=== PATIENT | female | born 1970 | race Caucasian/White ===

== ENCOUNTER 2017-06-03 17:33 | Emergency (ER) | payer MEDICARE, BC ==
[2017-06-03] MEDS ORDERED: Sodium Chloride 0.9% 10 ML Syringe FLUSH PRN (17:48)
[2017-06-03] MEDS ORDERED: Aspirin 81 MG Tab.Chew PO ONE (17:48)
[2017-06-03] MEDS: Nitroglycerin 0.4 MG Tab.SL SL PRN ×3 (17:55→18:06)
[2017-06-03] MEDS ORDERED: Morphine 2 MG/ML Syringe IVPUSH ONE (17:58)
[2017-06-03] MEDS ORDERED: Nitroglycerin/D5W 25 MG/250 ML BOTTLE IV SCH (18:00)
--- NOTE | 2017-06-03 18:30 | EDM.PDOC ---
ED HPI GENERAL MEDICAL PROBLEM - General Chief Complaint: Cardiovascular Problem Stated Complaint: CHEST PAIN Time Seen by Provider: 06/03/17 17:47 Source of Information: Reports: Patient History Limitations: Reports: No Limitations - History of Present Illness INITIAL COMMENTS - FREE TEXT/NARRATIVE: History of present illness: []Patient has a history of acute CA in March 2016 and was stented in [place]. She presents today with 5 day history of continuous left-sided chest pain that feels similar to her previous CA. Patient also has a history of fibromyalgia and states that she thought it might also be her fibromyalgia. Review of systems: As per history of present illness and below otherwise all systems reviewed and negative. Past medical history: As per history of present illness and as reviewed below otherwise noncontributory. Surgical history: As per history of present illness and as reviewed below otherwise noncontributory. Social history: No reported history of drug or alcohol abuse. Family history: As per history of present illness and as reviewed below otherwise noncontributory. Physical exam: General: Well developed, well nourished in NAD HEENT: Atraumatic, normocephalic, pupils reactive, negative for conjunctival pallor or scleral icterus, mucous membranes moist, throat clear, neck supple, nontender, trachea midline. Lungs: Clear to auscultation, breath sounds equal bilaterally, chest nontender. Heart: S1S2, regular, negative for clicks, rubs, or JVD. Abdomen: Soft, nondistended, nontender. Negative for masses or hepatosplenomegaly. Negative for costovertebral tenderness. Pelvis: Stable nontender. Genitourinary: Deferred. Rectal: Deferred. Extremities: Atraumatic, negative for cords or calf pain. Neurovascular unremarkable. Neuro: Awake, alert, oriented. Cranial nerves II through XII unremarkable. Cerebellum unremarkable. Motor and sensory unremarkable throughout. Exam nonfocal. Diagnostics: [] Therapeutics: [] Impression: [] Plan: [] Definitive disposition and diagnosis as appropriate pending reevaluation and review of above. Left Arm Pain Score (Numeric/FACES): 6 - Related Data Allergies Allergy/AdvReac Type Severity Reaction Status Date / Time codeine Allergy Facial Verified 02/20/17 10:04 Swelling ibuprofen Allergy Facial Unverified 02/20/17 10:05 Swelling ketorolac tromethamine Allergy Facial Verified 02/20/17 10:04 [From Toradol] Swelling procaine HCl [From Novocain] Allergy Other Verified 10/01/16 12:15 Home Meds: Home Meds Aspirin 10/01/16 [History] Clopidogrel [Plavix] 10/01/16 [History] Past Medical History HEENT History: Reports: None Cardiovascular History: Reports: [place], Stents Gastrointestinal History: Reports: Other (See Below) Other Gastrointestinal History: Ulcerative Colitis Other OB/BYN History: c section x 2 Musculoskeletal History: Reports: Fibromyalgia, Osteoarthritis Neurological History: Reports: Migraines Psychiatric History: Reports: Anxiety, Panic Attack Hematologic History: Reports: Anticoagulation Therapy Oncologic (Cancer) History: Reports: Cervix, Ovarian - Past Surgical History Female Surgical History: Reports: Hysterectomy Social & Family History - Family History Family Medical History: Noncontributory - Tobacco Use Smoking Status *Q: Current Every Day Smoker Years of Tobacco use: 30 Packs/Tins Daily: 1 - Caffeine Use Caffeine Use: Reports: Other - Recreational Drug Use Recreational Drug Use: No ED ROS GENERAL - Review of Systems Review Of Systems: See Below ED EXAM, GENERAL - Physical Exam Exam: See Below (CHPI) Course - Vital Signs Last Recorded V/S: Last Vital Signs Temp 35.8 C 06/03/17 17:46 Pulse 64 06/03/17 19:37 Resp 16 06/03/17 19:37 BP 127/90 06/03/17 19:37 Pulse Ox 98 06/03/17 19:37 - Orders/Labs/Meds Orders: Active Orders 24 hr Category Date Time Status EKG 12 Lead [EKG Documentation Completion] [RC] URGENT Care 06/03/17 17:36 Active Oxygen Therapy, ED [RC] ASDIRECTED Care 06/03/17 17:47 Active Chest 1V Frontal [CR] Stat Exams 06/03/17 17:48 Taken Saline Lock Insert [OM.PC] Stat Oth 06/03/17 17:47 Ordered Labs: Laboratory Tests 06/03/17 06/03/17 06/03/17 Range/Units 17:40 17:40 17:40 WBC 12.92 H (4.0-11.0) K/uL RBC 5.09 (4.30-5.90) M/uL Hgb 14.8 (12.0-16.0) g/dL Hct 44.4 (36.0-46.0) % MCV 87.2 (80.0-98.0) fL MCH 29.1 (27.0-32.0) pg MCHC 33.3 (31.0-37.0) g/dL RDW Std Deviation 43.8 (28.0-62.0) fl RDW Coeff of Ethel 14 (11.0-15.0) % Plt Count 287 (150-400) K/uL MPV 11.30 (7.40-12.00) fL Neut % (Auto) 54.8 (48.0-80.0) % Lymph % (Auto) 37.6 (16.0-40.0) % [place] % (Auto) 5.3 (0.0-15.0) % Eos % (Auto) 1.9 (0.0-7.0) % Baso % (Auto) 0.4 (0.0-1.5) % Neut # (Auto) 7.1 H (1.4-5.7) K/uL Lymph # (Auto) 4.9 H (0.6-2.4) K/uL [place] # (Auto) 0.7 (0.0-0.8) K/uL Eos # (Auto) 0.2 (0.0-0.7) K/uL Baso # (Auto) 0.1 (0.0-0.1) K/uL Nucleated RBC % 0.0 /100WBC Nucleated RBCs # 0 K/uL INR (0.86-1.11) APTT (18.6-31.3) SEC Sodium 139 (136-146) mmol/L Potassium 3.1 L (3.5-5.1) mmol/L Chloride 104 (98-110) mmol/L Carbon Dioxide 23 (21-31) mmol/L BUN 5 L (6.0-23.0) mg/dL Creatinine 1.0 (0.6-1.5) mg/dL Est Cr Clr Drug Dosing 60.40 mL/min Estimated GFR (MDRD) 59.7 ml/min Glucose 120 H (60-110) mg/dL Calcium 8.8 (8.8-10.8) mg/dL Total Bilirubin 0.4 (0.1-1.5) mg/dL AST 17 (5-40) IU/L ALT 15 (8-54) IU/L Alkaline Phosphatase 97 (40-150) Troponin I < 0.10 (0.0-0.29) NG/ML Total Protein 7.8 (6.0-8.0) g/dL Albumin 4.4 (3.5-5.0) g/dL Globulin 3.4 (2.0-3.5) g/dL Albumin/Globulin Ratio 1.3 (1.3-2.8) 06/03/17 Range/Units 17:40 WBC (4.0-11.0) K/uL RBC (4.30-5.90) M/uL Hgb (12.0-16.0) g/dL Hct (36.0-46.0) % MCV (80.0-98.0) fL MCH (27.0-32.0) pg MCHC (31.0-37.0) g/dL RDW Std Deviation (28.0-62.0) fl RDW Coeff of Ethel (11.0-15.0) % Plt Count (150-400) K/uL MPV (7.40-12.00) fL Neut % (Auto) (48.0-80.0) % Lymph % (Auto) (16.0-40.0) % [place] % (Auto) (0.0-15.0) % Eos % (Auto) (0.0-7.0) % Baso % (Auto) (0.0-1.5) % Neut # (Auto) (1.4-5.7) K/uL Lymph # (Auto) (0.6-2.4) K/uL [place] # (Auto) (0.0-0.8) K/uL Eos # (Auto) (0.0-0.7) K/uL Baso # (Auto) (0.0-0.1) K/uL Nucleated RBC % /100WBC Nucleated RBCs # K/uL INR 0.96 (0.86-1.11) APTT 25.1 (18.6-31.3) SEC Sodium (136-146) mmol/L Potassium (3.5-5.1) mmol/L Chloride (98-110) mmol/L Carbon Dioxide (21-31) mmol/L BUN (6.0-23.0) mg/dL Creatinine (0.6-1.5) mg/dL Est Cr Clr Drug Dosing mL/min Estimated GFR (MDRD) ml/min Glucose (60-110) mg/dL Calcium (8.8-10.8) mg/dL Total Bilirubin (0.1-1.5) mg/dL AST (5-40) IU/L ALT (8-54) IU/L Alkaline Phosphatase (40-150) Troponin I (0.0-0.29) NG/ML Total Protein (6.0-8.0) g/dL Albumin (3.5-5.0) g/dL Globulin (2.0-3.5) g/dL Albumin/Globulin Ratio (1.3-2.8) Meds: Medications Discontinued Medications Generic Name Dose Route Start Last Admin Trade Name Freq PRN Reason Stop Dose Admin Aspirin 324 mg 06/03/17 17:48 06/03/17 17:54 Aspirin PO 06/03/17 17:49 324 mg ONETIME ONE Administration Nitroglycerin/Dextrose 25 mg in 250 mls @ 3 mls/hr 06/03/17 18:00 06/03/17 18 :32 Nitroglycerin 25 Mg/D5w 250 Ml IV 5 mcg/min TITRATE HAWA 3 mls/hr 5 MCG/MIN Administration Morphine Sulfate 4 mg 06/03/17 17:58 06/03/17 18:10 Morphine IVPUSH 06/03/17 17:59 4 mg ONETIME ONE Administration Nitroglycerin 0.4 mg 06/03/17 17:48 06/03/17 18:06 Nitrostat SL 06/03/17 17:59 0.4 mg Q5M PRN Administration Chest Pain Sodium Chloride 10 ml 06/03/17 17:48 Saline Flush FLUSH ASDIRECTED PRN Keep Vein Open Departure - Departure Time of Disposition: 19:40 Disposition: DC/Tfer to Acute Hospital 02 Reason for Transfer *Q: Other Condition: Good Clinical Impression: Acute coronary syndrome Referrals: César Arnold MD [Primary Care Provider] - Forms: ED Department Discharge - My Orders Last 24 Hours: My Active Orders 06/03/17 17:36 EKG 12 Lead [EKG Documentation Completion] [RC] URGENT 06/03/17 17:47 Oxygen Therapy, ED [RC] ASDIRECTED Saline Lock Insert [OM.PC] Stat 06/03/17 17:48 Chest 1V Frontal [CR] Stat - Assessment/Plan Last 24 Hours: My Active Orders 06/03/17 17:36 EKG 12 Lead [EKG Documentation Completion] [] URGENT 06/03/17 17:47 Oxygen Therapy, ED [RC] ASDIRECTED Saline Lock Insert [OM.PC] Stat 06/03/17 17:48 Chest 1V Frontal [CR] Stat
[2017-06-03 19:39] VITALS: BP 127/90
--- NOTE | 2017-06-04 13:04 | CR ---
EXAM DATE: 06/03/17 PATIENT'S AGE: 47 Patient: SHAUNA MANJARREZ Facility: [place], [place] Site . Site : [id number] Study: XRay Chest [id number] 6:34:24 PM Ordering Physician: Regulo Jones Final Report: Indication: Arm pain Technique: Chest 1 view Comparison: October 01, 2016. Findings/Impression: Cardiovascular and mediastinum: Heart size and vasculature are normal in caliber and appearance. Mediastinum is within normal limits. Lungs and pleural space: Calcified granuloma right lower lung field. Lungs are otherwise clear. No sign of pleural effusion. No pneumothorax. Bones and soft tissues: No significant findings. Dictated by Annette Bertrand MD @ Jun 03 2017 6:42PM (Electronic Signature) Report Signed by Proxy. [facility]
== END 2017-06-03 19:40 ==
LOC: MW.ED 17:33 → MW.MS 18:26 → UNDOADMOB 18:26 → MW.ED 19:40
DX: I24.9 Acute ischemic heart disease, unspecified (principal); I25.2 Old myocardial infarction; M19.90 Unspecified osteoarthritis, unspecified site; F17.210 Nicotine dependence, cigarettes, uncomplicated; Z88.5 Allergy status to narcotic agent; Z90.710 Acquired absence of both cervix and uterus; Z88.6 Allergy status to analgesic agent; Z79.82 Long term (current) use of aspirin
CPT/HCPCS: 71010; 80053; 84484; 85025; 85610; 85730; 93005; 96374; 99285; A9270; J2270

== ENCOUNTER 2019-11-04 23:25 | Observation (INO) | payer MEDICARE, OTHER ==
[2019-11-04] MEDS ORDERED: Sodium Chloride 0.9% 1,000 ML IV ONE (23:40)
[2019-11-04] MEDS ORDERED: Sodium Chloride 0.9% 2.5 ML Syringe FLUSH PRN (23:40)
[2019-11-04] MEDS ORDERED: Sodium Chloride 0.9% 10 ML Syringe FLUSH PRN (23:40)
--- NOTE | 2019-11-04 23:46 | EDM.PDOC ---
ED HPI GENERAL MEDICAL PROBLEM - General Chief Complaint: Chest Pain Stated Complaint: EMS ARRIVAL Time Seen by Provider: 11/04/19 23:30 - History of Present Illness INITIAL COMMENTS - FREE TEXT/NARRATIVE: HISTORY AND PHYSICAL: History of present illness: Patient is a 49-year-old female who presents via EMS with complaints of left- sided chest pain with some radiation to her shoulder that started at approximately 1030, just over an hour ago. The patient has a significant cardiac history for PTCA and stent in April 2016 and a visit to our ER in May 2017 where she was transferred for ACS. Her stents were placed in [facility] but she currently follows with a business process modeler at [facility]. The patient also has a history of fibromyalgia and tobacco use and follows at [facility] with Dr. Arnold for her basic medical care as well as neurologist in [place] for her fibromyalgia. The patient is on chronic gabapentin Flexeril and hydrocodone for her chronic pain syndrome and she smokes tobacco but denies any drug use. The patient says she was seen by her business process modeler 6 months ago and does check in every 6 months. 6 months ago she had an echocardiogram but she has not had any intervention such as a repeat heart cath or a chemical stress test since her original stents in 2015. The patient says that she did do more activity than usual today by going to the store and shopping and she does not have a very high exercise tolerance. She was more tired this evening but ate her normal meals and had no systemic complaints of fever shortness of breath runny nose sore throat abdominal pain vomiting or diarrhea. The patient was watching a movie and she suddenly had onset of left upper chest pain which radiated to her shoulder and her back but not to her jaw and there was some nausea but no diaphoresis or shortness of breath. She rated the pain as a 10/10. The patient was instructed by her business process modeler to take nitroglycerin sublingual every 5 minutes in succession and it did improve the chest pain but because it did not go away completely she called EMS. EMS gave her aspirin 324 mg and 1 nitro and the patient currently rates her pain as a 3/10 and says it is significantly improved. The patient tells me that she is only used her nitroglycerin one time in the last 3 years and that was about a year ago. She has no leg pain or swelling currently in the ED she has no nausea no shortness of breath and is just somewhat anxious. She does not take anything specifically for anxiety. She does admit to me that she drinks a lot of Pepsi and does not hydrate very much. Patient has no hypertension and no diabetes and she is currently taking aspirin daily as well as Plavix. She is not on a beta-chantal. Review of systems: As per history of present illness and below otherwise all systems reviewed and negative. Past medical history: As per history of present illness and as reviewed below otherwise noncontributory. Surgical history: As per history of present illness and as reviewed below otherwise noncontributory. Social history: No reported history of drug or alcohol abuse. Family history: As per history of present illness and as reviewed below otherwise noncontributory. Physical exam: General: Well-developed well-nourished female who is nontoxic and vital signs are noted by me. HEENT: Atraumatic, normocephalic, pupils reactive, negative for conjunctival pallor or scleral icterus, mucous membranes moist, throat clear, neck supple, nontender, trachea midline. Lungs: Clear to auscultation, breath sounds equal bilaterally, chest nontender. No wheezing stridor or work of breathing Heart: S1S2, regular rhythm and slightly tachycardic rate on my evaluation, negative for clicks, rubs, or JVD. Abdomen: Soft, nondistended, nontender. Negative for masses or hepatosplenomegaly. Negative for costovertebral tenderness. Pelvis: Stable nontender. Genitourinary: Deferred. Rectal: Deferred. Extremities: Atraumatic, negative for cords or calf pain. Neurovascular unremarkable. No pedal edema or leg asymmetry Neuro: Awake, alert, oriented. Cranial nerves II through XII unremarkable. Cerebellum unremarkable. Motor and sensory unremarkable throughout. Exam nonfocal. Diagnostics: EKG x2 chest x-ray CBC CMP troponin INR lactate magnesium level Therapeutics: IV O2 monitor IV fluids, EMS gave 324 mg of aspirin so I will not repeat, nitro sublingual, nitro sublingual potassium 0002: After 2 sublingual nitros the patient is not having any chest pain and half an inch of Nitropaste will be placed. The patient's heart rate has also normalized and is now in the 90s. We will continue with our present treatment 0010: Second EKG shows a heart rate of 86 and nonspecific flattening but no acute changes. 0020: Patient and at bedside are aware of all testing results and I will give her a dose of KCl and check her magnesium level. She is aware of my concerns about her lactate and her WBC count and in conversation with her she recently had a burst of steroid therapy for an ear problem and only finished them 2 days ago which may explain the leukocytosis. She is not febrile and has no cough no urinary complaints 0026: Discussed with our hospitalist Dr. Nobles and she accept the patient for observation admission. She is aware of all of the labs and my evaluation and work-up. Impression: Chest pain rule out ACS with history of coronary artery disease and stents Leukocytosis and elevated lactate recent steroid use Hypokalemia Definitive disposition and diagnosis as appropriate pending reevaluation and review of above. Treatments APPLIQUE CUTTER: Reports: IV/IO chest pain Pain Score (Numeric/FACES): 3 - Related Data Allergies Allergy/AdvReac Type Severity Reaction Status Date / Time codeine Allergy Facial Verified 11/05/19 00:25 Swelling ibuprofen Allergy Facial Verified 11/05/19 00:25 Swelling ketorolac tromethamine Allergy Facial Verified 11/05/19 00:25 [From Toradol] Swelling procaine HCl [From Novocain] Allergy Other Verified 11/05/19 00:25 Home Meds: Home Meds Aspirin 1 tab PO DAILY 10/01/16 [History] Clopidogrel [Plavix] 1 tab PO DAILY 10/01/16 [History] ALPRAZolam [Alprazolam] 1 tab PO DAILY 11/04/19 [History] Acetaminophen/HYDROcodone [[place] 325-10 MG] 1 tab PO ASDIRECTED PRN 11/04/19 [ History] Cyclobenzaprine [Flexeril] 10 mg PO DAILY 11/04/19 [History] Gabapentin [Neurontin] 1 cap PO DAILY 11/04/19 [History] Mesalamine [Lialda] 1 tab PO DAILY 11/04/19 [History] atorvaSTATin Calcium [Atorvastatin Calcium] 1 tab PO DAILY 11/04/19 [History] Past Medical History HEENT History: Reports: None Cardiovascular History: Reports: [place], Stents Gastrointestinal History: Reports: Other (See Below) Other Gastrointestinal History: Ulcerative Colitis Other SAW FEEDER History: c section x 2 Musculoskeletal History: Reports: Fibromyalgia, Osteoarthritis Neurological History: Reports: Migraines Psychiatric History: Reports: Anxiety, Panic Attack Hematologic History: Reports: Anticoagulation Therapy Oncologic (Cancer) History: Reports: Cervix, Ovarian - Past Surgical History Female Surgical History: Reports: Hysterectomy Social & Family History - Family History Family Medical History: Noncontributory - Caffeine Use Caffeine Use: Reports: Other ED ROS GENERAL - Review of Systems Review Of Systems: Comprehensive ROS is negative, except as noted in HPI. ED EXAM, GENERAL - Physical Exam Exam: See Below (See dictation) Course - Vital Signs Last Recorded V/S: Last Vital Signs Temp 36.4 C 11/04/19 23:25 Pulse 96 11/05/19 00:01 Resp 18 11/05/19 00:01 BP 109/67 11/05/19 00:01 Pulse Ox 98 11/05/19 00:01 - Orders/Labs/Meds Orders: Active Orders 24 hr Category Date Time Status Patient Status [ADT] Stat ADT 11/05/19 00:29 Ordered Cardiac Monitoring [RC] . DIRECTED Care 11/04/19 23:40 Active EKG Documentation Completion [RC] STAT Care 11/04/19 23:40 Active EKG Documentation Completion [RC] STAT Care 11/05/19 00:03 Active Oxygen Therapy, ED [RC] ASDIRECTED Care 11/04/19 23:40 Active Pulse Oximetry [RC] ASDIRECTED Care 11/04/19 23:40 Active Nitroglycerin [Nitrostat] Med 11/04/19 23:40 Active 0.4 mg SL Q5M PRN Sodium Chloride 0.9% [Normal Saline] 1,000 ml Med 11/04/19 23:40 Active IV STAT Sodium Chloride 0.9% [Saline Flush] Med 11/04/19 23:40 Active 10 ml FLUSH ASDIRECTED PRN Sodium Chloride 0.9% [Saline Flush] Med 11/04/19 23:40 Active 2.5 ml FLUSH ASDIRECTED PRN Saline Lock Insert [OM.PC] Stat Oth 11/04/19 23:40 Ordered Medication Orders Sodium Chloride (Normal Saline) 1,000 mls @ 999 mls/hr IV STAT ONE Stop: 11/05/19 00:40 Last Admin: 11/04/19 23:47 Dose: 999 mls/hr Nitroglycerin (Nitrostat) 0.4 mg SL Q5M PRN PRN Reason: Chest Pain Last Admin: 11/04/19 23:54 Dose: 0.4 mg Admin: 11/04/19 23:47 Dose: 0.4 mg Sodium Chloride (Saline Flush) 10 ml FLUSH ASDIRECTED PRN PRN Reason: Keep Vein Open Sodium Chloride (Saline Flush) 2.5 ml FLUSH ASDIRECTED PRN PRN Reason: Keep Vein Open Labs: Laboratory Tests 11/04/19 11/04/19 11/04/19 Range/Units 23:25 23:25 23:25 WBC 18.11 H (4.0-11.0) K/uL RBC 4.65 (4.30-5.90) M/uL Hgb 13.4 (12.0-16.0) g/dL Hct 39.8 (36.0-46.0) % MCV 85.6 (80.0-98.0) fL MCH 28.8 (27.0-32.0) pg MCHC 33.7 (31.0-37.0) g/dL RDW Std Deviation 45.8 (28.0-62.0) fl RDW Coeff of Ethel 15 (11.0-15.0) % Plt Count 377 (150-400) K/uL MPV 11.20 (7.40-12.00) fL Neut % (Auto) 52.4 (48.0-80.0) % Lymph % (Auto) 35.5 (16.0-40.0) % [place] % (Auto) 8.1 (0.0-15.0) % Eos % (Auto) 3.6 (0.0-7.0) % Baso % (Auto) 0.4 (0.0-1.5) % Neut # (Auto) 9.5 H (1.4-5.7) K/uL Lymph # (Auto) 6.4 H (0.6-2.4) K/uL [place] # (Auto) 1.5 H (0.0-0.8) K/uL Eos # (Auto) 0.7 (0.0-0.7) K/uL Baso # (Auto) 0.1 (0.0-0.1) K/uL Nucleated RBC % 0.0 /100WBC Nucleated RBCs # 0 K/uL INR 0.92 Lactate (0.20-2.00) mmol/L Sodium 140 (136-145) mmol/L Potassium 2.9 L (3.5-5.1) mmol/L Chloride 102 (98-107) mmol/L Carbon Dioxide 26.7 (21.0-32.0) mmol/L BUN 10 (7.0-18.0) mg/dL Creatinine 0.9 (0.6-1.0) mg/dL Est Cr Clr Drug Dosing 65.69 mL/min Estimated GFR (MDRD) > 60.0 ml/min Glucose 86 (74-106) mg/dL Calcium 8.2 L (8.5-10.1) mg/dL Magnesium (1.8-2.4) mg/dL Total Bilirubin 0.2 (0.2-1.0) mg/dL AST 10 L (15-37) IU/L ALT 18 (14-63) IU/L Alkaline Phosphatase 96 (46-116) U/L Troponin I < 0.050 (0.000-0.056) ng/mL Total Protein 6.7 (6.4-8.2) g/dL Albumin 3.3 L (3.4-5.0) g/dL Globulin 3.4 (2.6-4.0) g/dL Albumin/Globulin Ratio 1.0 (0.9-1.6) 11/04/19 11/04/19 Range/Units 23:25 23:25 WBC (4.0-11.0) K/uL RBC (4.30-5.90) M/uL Hgb (12.0-16.0) g/dL Hct (36.0-46.0) % MCV (80.0-98.0) fL MCH (27.0-32.0) pg MCHC (31.0-37.0) g/dL RDW Std Deviation (28.0-62.0) fl RDW Coeff of Ethel (11.0-15.0) % Plt Count (150-400) K/uL MPV (7.40-12.00) fL Neut % (Auto) (48.0-80.0) % Lymph % (Auto) (16.0-40.0) % [place] % (Auto) (0.0-15.0) % Eos % (Auto) (0.0-7.0) % Baso % (Auto) (0.0-1.5) % Neut # (Auto) (1.4-5.7) K/uL Lymph # (Auto) (0.6-2.4) K/uL [place] # (Auto) (0.0-0.8) K/uL Eos # (Auto) (0.0-0.7) K/uL Baso # (Auto) (0.0-0.1) K/uL Nucleated RBC % /100WBC Nucleated RBCs # K/uL INR Lactate 2.6 H* (0.20-2.00) mmol/L Sodium (136-145) mmol/L Potassium (3.5-5.1) mmol/L Chloride (98-107) mmol/L Carbon Dioxide (21.0-32.0) mmol/L BUN (7.0-18.0) mg/dL Creatinine (0.6-1.0) mg/dL Est Cr Clr Drug Dosing mL/min Estimated GFR (MDRD) ml/min Glucose (74-106) mg/dL Calcium (8.5-10.1) mg/dL Magnesium 2.0 (1.8-2.4) mg/dL Total Bilirubin (0.2-1.0) mg/dL AST (15-37) IU/L ALT (14-63) IU/L Alkaline Phosphatase (46-116) U/L Troponin I (0.000-0.056) ng/mL Total Protein (6.4-8.2) g/dL Albumin (3.4-5.0) g/dL Globulin (2.6-4.0) g/dL Albumin/Globulin Ratio (0.9-1.6) Meds: Medications Generic Name Dose Route Start Last Admin Trade Name Freq PRN Reason Stop Dose Admin Sodium Chloride 1,000 mls @ 999 mls/hr 11/04/19 23:40 11/04/19 23:47 Normal Saline IV 11/05/19 00:40 999 mls/hr STAT ONE Administration Nitroglycerin 0.4 mg 11/04/19 23:40 11/04/19 23:54 Nitrostat SL 0.4 mg Q5M PRN Administration Chest Pain Sodium Chloride 10 ml 11/04/19 23:40 Saline Flush FLUSH ASDIRECTED PRN Keep Vein Open Sodium Chloride 2.5 ml 11/04/19 23:40 Saline Flush FLUSH ASDIRECTED PRN Keep Vein Open Discontinued Medications Generic Name Dose Route Start Last Admin Trade Name Freq PRN Reason Stop Dose Admin Nitroglycerin 0.5 gm 11/05/19 00:03 11/05/19 00:15 Nitro-Bid 2% TOP 11/05/19 00:04 0.5 gm ONETIME ONE Administration Potassium Chloride 40 meq 11/05/19 00:13 Klor-Con M20 PO 11/05/19 00:14 ONETIME ONE Departure - Departure Time of Disposition: 00:32 Disposition: Refer to Observation Condition: Good Clinical Impression: Acute coronary syndrome - Discharge Information Referrals: César Arnold MD [Primary Care Provider] - Forms: ED Department Discharge Sepsis Event Note - Evaluation Sepsis Screening Result: No Definite Risk - Focused Exam Vital Signs: Vital Signs Temp Pulse Resp BP BP Pulse Ox Pulse Ox 11/05/19 00:01 96 18 109/67 98 11/04/19 23:54 99 18 109/74 109/74 98 11/04/19 23:49 99 11/04/19 23:48 97 20 115/82 99 11/04/19 23:47 115/82 11/04/19 23:25 36.4 C 107 H 18 113/82 97 Date Exam was Performed: 11/05/19 Time Exam was Performed: 00:30 - My Orders Last 24 Hours: My Active Orders 11/04/19 23:40 Cardiac Monitoring [RC] . DIRECTED EKG Documentation Completion [RC] STAT Oxygen Therapy, ED [RC] ASDIRECTED Pulse Oximetry [RC] ASDIRECTED Nitroglycerin [Nitrostat] 0.4 mg SL Q5M PRN Sodium Chloride 0.9% [Normal Saline] 1,000 ml IV STAT Sodium Chloride 0.9% [Saline Flush] 10 ml FLUSH ASDIRECTED PRN Sodium Chloride 0.9% [Saline Flush] 2.5 ml FLUSH ASDIRECTED PRN Saline Lock Insert [OM.PC] Stat 11/05/19 00:03 EKG Documentation Completion [RC] STAT 11/05/19 00:29 Patient Status [ADT] Stat - Assessment/Plan Last 24 Hours: My Active Orders 11/04/19 23:40 Cardiac Monitoring [RC] . DIRECTED EKG Documentation Completion [RC] STAT Oxygen Therapy, ED [RC] ASDIRECTED Pulse Oximetry [RC] ASDIRECTED Nitroglycerin [Nitrostat] 0.4 mg SL Q5M PRN Sodium Chloride 0.9% [Normal Saline] 1,000 ml IV STAT Sodium Chloride 0.9% [Saline Flush] 10 ml FLUSH ASDIRECTED PRN Sodium Chloride 0.9% [Saline Flush] 2.5 ml FLUSH ASDIRECTED PRN Saline Lock Insert [OM.PC] Stat 11/05/19 00:03 EKG Documentation Completion [RC] STAT 11/05/19 00:29 Patient Status [ADT] Stat
[2019-11-04] MEDS: Nitroglycerin 0.4 MG Tab.SL SL PRN ×2 (23:47→23:54)
[2019-11-05] MEDS ORDERED: Nitroglycerin 2% Oint 1 GM UD Packet TOP ONE (00:03)
[2019-11-05 00:04] LABS: BLOOD UREA NITROGEN,BUN 10 mg/dL (7.0-18.0); CARBON DIOXIDE,CO2 26.7 mmol/L (21.0-32.0); CHLORIDE,CL 102 mmol/L (98-107); GLUCOSE RANDOM 86 mg/dL (74-106); POTASSIUM,K 2.9 mmol/L (3.5-5.1); SODIUM,NA 140 mmol/L (136-145)
[2019-11-05] MEDS ORDERED: Potassium Chloride 20 MEQ Tab.ER PO ONE ×2 (00:13→07:40)
--- NOTE | 2019-11-05 00:17 | CR ---
Indication: Pain, shortness of breath Technique: Chest 1 view Comparison: None Findings/Impression: Cardiovascular and mediastinum: Heart size and vasculature are normal in caliber and appearance. Mediastinum is within normal limits. Lungs and pleural space: Calcified granuloma right lower lung field. Lungs are otherwise clear. No sign of pleural effusion. No pneumothorax. Bones and soft tissues: Dextroscoliosis no acute findings. Dictated by Annette Bertrand MD @ Nov 05 2019 12:14AM Signed by Dr. Annette Bertrand @ Nov 05 2019 12:15AM
[2019-11-05] MEDS ORDERED: Nitroglycerin 0.4 MG Tab.SL SL PRN (00:37)
[2019-11-05] MEDS ORDERED: Ondansetron 4 MG/2 ML SDV IVPUSH PRN (00:37)
[2019-11-05] MEDS ORDERED: Albuterol/Ipratropium 3.0-0.5 MG/3 ML Neb Soln NEB PRN (00:37)
[2019-11-05] MEDS ORDERED: Morphine 10 MG/ML Syringe IVPUSH PRN (00:37)
[2019-11-05] MEDS ORDERED: Sodium Chloride 0.9% 1,000 ML IV SCH (00:45)
[2019-11-05] MEDS ORDERED: Aluminum Hydroxide/Magnesium Hydroxide/Simethicone Susp 30 ML Cup PO PRN (00:49)
[2019-11-05 06:05] LABS: BLOOD UREA NITROGEN,BUN 8 mg/dL (7.0-18.0); CARBON DIOXIDE,CO2 26.7 mmol/L (21.0-32.0); CHLORIDE,CL 110 mmol/L (98-107); GLUCOSE RANDOM 104 mg/dL (74-106); POTASSIUM,K 3.4 mmol/L (3.5-5.1); SODIUM,NA 144 mmol/L (136-145)
[2019-11-05] MEDS ORDERED: Calcium Gluconate 10% 1 GM/10 ML SDV IVPUSH ONE (08:13)
[2019-11-05] MEDS ORDERED: Clopidogrel 75 MG Tab PO SCH ×2 (09:00→21:00)
[2019-11-05] MEDS ORDERED: atorvaSTATin 40 MG Tab PO SCH ×2 (09:00→21:00)
[2019-11-05] MEDS ORDERED: ALPRAZolam 0.5 MG Tab PO SCH (09:00)
[2019-11-05] MEDS ORDERED: Aspirin 81 MG Tab.Chew PO SCH ×2 (09:00→21:00)
--- NOTE | 2019-11-05 09:27 | PCM.HP.2 ---
<Kortney Peck - Last Filed: 11/05/19 09:28> H&P History of Present Illness - General Date of Service: 11/05/19 Admit Problem/Dx: Admission Diagnosis/Problem Admission Diagnosis/Problem Acute coronary syndrome Source of Information: Patient - History of Present Illness Initial Comments - Free Text/Narative: 49-year-old female past medical history of angioplasty with stent placement in April 2016 presented with left-sided chest pain with radiation of pain into her left shoulder; she was at home; while watching movies and drinking Pepsi when she noticed a 10 out of 10 chest pain at rest with radiation into her back and left shoulder; patient took at home 2 doses of nitroglycerin without resolution of pain on arrival via EMS to [facility] another dose of nitroglycerin was given with aspirin 324 as well; ultimately with resolution of her pain patient otherwise denies any other accompanying symptoms including fever, chills, body aches, diarrhea, constipation, headache, lower extremity swelling. Understands that her 1 pack/day of tobacco abuse and daily consumption of multiple cans of Pepsi or not doing her heart any good. Endorses having a cardiology follow-up next month chest pain Pain Score (Numeric/FACES): 0 - Related Data Allergies/Adverse Reactions: Allergies Allergy/AdvReac Type Severity Reaction Status Date / Time codeine Allergy Facial Verified 11/05/19 02:55 Swelling ibuprofen Allergy Facial Verified 11/05/19 02:55 Swelling ketorolac tromethamine Allergy Facial Verified 11/05/19 02:55 [From Toradol] Swelling procaine HCl [From Novocain] Allergy Other Verified 11/05/19 02:55 Home Medications: Home Meds Aspirin 81 mg PO DAILY 10/01/16 [History] Clopidogrel [Plavix] 75 mg PO DAILY 10/01/16 [History] ALPRAZolam [Alprazolam] 0.5 mg PO DAILY 11/04/19 [History] Acetaminophen/HYDROcodone [[place] 325-10 MG] 10 - 325 mg PO ASDIRECTED PRN [History] Cyclobenzaprine [Flexeril] 10 mg PO BEDTIME 11/04/19 [History] Gabapentin [Neurontin] 1,200 mg PO BEDTIME 11/04/19 [History] Mesalamine [Lialda] 1.2 gm PO DAILY 11/04/19 [History] atorvaSTATin Calcium [Atorvastatin Calcium] 80 mg PO DAILY 11/04/19 [History] Nitroglycerin [Nitrostat] 0.4 mg SL Q5M PRN tab.sl 11/05/19 [Rx] Potassium Gluconate [Potassium] 99 mg PO DAILY 11/05/19 [History] Past Medical History HEENT History: Reports: None, Other (See Below) Other HEENT History: wears glasses and upper dentuers Cardiovascular History: Reports: CAD, LA, Stents Other Cardiovascular History: hx of elevated ck levels Respiratory History: Reports: None Gastrointestinal History: Reports: Other (See Below) Other Gastrointestinal History: Ulcerative Colitis Genitourinary History: Reports: None 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 OB/BYN History: c section x 2 Musculoskeletal History: Reports: Fibromyalgia, Osteoarthritis Other Musculoskeletal History: restless leg, fatigue Neurological History: Reports: Headaches, Chronic, Migraines, Other (See Below) Other Neuro History: parasthesia, polyarthralgia Psychiatric History: Reports: Anxiety, Depression, Panic Attack Endocrine/Metabolic History: Reports: Vitamin D Deficiency, Other (See Below) Other Endocrine/Metabolic History: vit b deficiency, dyslipidemia Insulin Pump Model and B2B Sales Manager: None Hematologic History: Reports: Anticoagulation Therapy, B12 Deficiency Immunologic History: Reports: None Oncologic (Cancer) History: Reports: Cervix, Ovarian Dermatologic History: Reports: None - Infectious Disease History Infectious Disease History: Reports: None - Past Surgical History Head Surgeries/Procedures: Reports: None Other Cardiovascular Surgeries/Procedures: LA w/ stents april 2016 GI Surgical History: Reports: Cholecystectomy, Other (See Below) Other GI Surgeries/Procedures: "several laparoscopies" Female Surgical History: Reports: Hysterectomy Social & Family History - Family History Family Medical History: Noncontributory - Tobacco Use Smoking Status *Q: Current Every Day Smoker Years of Tobacco use: 30 Packs/Tins Daily: 1 - Caffeine Use Caffeine Use: Reports: Soda - Recreational Drug Use Recreational Drug Use: No H&P Review of Systems - Review of Systems: Review Of Systems: See Below General: Denies: Fever, Chills, Malaise, Weakness, Fatigue HEENT: Reports: No Symptoms Pulmonary: Denies: Shortness of Breath, Wheezing, Cough Cardiovascular: Reports: No Symptoms. Denies: Chest Pain, Palpitations, Dyspnea on Exertion, Edema, Lightheadedness Gastrointestinal: Denies: Abdominal Pain, Constipation, Diarrhea, Decreased Appetite Genitourinary: Denies: Dysuria, Frequency, Burning Musculoskeletal: Denies: Shoulder Pain, Back Pain Skin: Reports: No Symptoms Psychiatric: Denies: Confusion Neurological: Denies: Headache Exam - Exam Exam: See Below - Vital Signs Vital Signs: Last Vital Signs Temp 96.9 F 11/05/19 04:00 Pulse 77 11/05/19 04:00 Resp 17 11/05/19 04:00 BP 108/66 11/05/19 04:00 Pulse Ox 96 11/05/19 04:00 Weight: 58.6 kg - Exam General: Alert, Oriented HEENT: Conjunctiva Clear, EOMI Neck: Supple, Trachea Midline Lungs: Clear to Auscultation, Normal Respiratory Effort Cardiovascular: Regular Rate, Regular Rhythm GI/Abdominal Exam: Soft, Non-Tender, No Organomegaly Back Exam: Full Range of Motion Extremities: Normal Inspection, No Pedal Edema Skin: Warm, Dry Neurological: Cranial Nerves Intact Neuro Extensive - Mental Status: Alert, Oriented x3, Normal Mood/Affect, Normal Cognition Neuro Extensive - Motor, Sensory, Reflexes: Normal Gait Psychiatric: Alert, Normal Affect, Normal Mood - Patient Data Lab Results Last 24 hrs: Laboratory Results - last 24 hr 11/04/19 11/04/19 11/04/19 Range/Units 23:25 23:25 23:25 WBC 18.11 H (4.0-11.0) K/uL RBC 4.65 (4.30-5.90) M/uL Hgb 13.4 (12.0-16.0) g/dL Hct 39.8 (36.0-46.0) % MCV 85.6 (80.0-98.0) fL MCH 28.8 (27.0-32.0) pg MCHC 33.7 (31.0-37.0) g/dL RDW Std Deviation 45.8 (28.0-62.0) fl RDW Coeff of Ethel 15 (11.0-15.0) % Plt Count 377 (150-400) K/uL MPV 11.20 (7.40-12.00) fL Neut % (Auto) 52.4 (48.0-80.0) % Lymph % (Auto) 35.5 (16.0-40.0) % Stephenson % (Auto) 8.1 (0.0-15.0) % Eos % (Auto) 3.6 (0.0-7.0) % Baso % (Auto) 0.4 (0.0-1.5) % Neut # (Auto) 9.5 H (1.4-5.7) K/uL Lymph # (Auto) 6.4 H (0.6-2.4) K/uL Stephenson # (Auto) 1.5 H (0.0-0.8) K/uL Eos # (Auto) 0.7 (0.0-0.7) K/uL Baso # (Auto) 0.1 (0.0-0.1) K/uL Nucleated RBC % 0.0 /100WBC Nucleated RBCs # 0 K/uL INR 0.92 Lactate (0.20-2.00) mmol/L Sodium 140 (136-145) mmol/L Potassium 2.9 L (3.5-5.1) mmol/L Chloride 102 (98-107) mmol/L Carbon Dioxide 26.7 (21.0-32.0) mmol/L BUN 10 (7.0-18.0) mg/dL Creatinine 0.9 (0.6-1.0) mg/dL Est Cr Clr Drug Dosing 65.69 mL/min Estimated GFR (MDRD) > 60.0 ml/min Glucose 86 (74-106) mg/dL Calcium 8.2 L (8.5-10.1) mg/dL Phosphorus (2.6-4.7) mg/dL Magnesium (1.8-2.4) mg/dL Total Bilirubin 0.2 (0.2-1.0) mg/dL AST 10 L (15-37) IU/L ALT 18 (14-63) IU/L Alkaline Phosphatase 96 (46-116) U/L Troponin I < 0.050 (0.000-0.056) ng/mL Total Protein 6.7 (6.4-8.2) g/dL Albumin 3.3 L (3.4-5.0) g/dL Globulin 3.4 (2.6-4.0) g/dL Albumin/Globulin Ratio 1.0 (0.9-1.6) Triglycerides (0-200) mg/dL Cholesterol (50-200) mg/dL LDL Cholesterol, Calc (60-180) mg/dL VLDL Cholesterol (5-55) mg/dL HDL Cholesterol (40-60) mg/dL Cholesterol/HDL Ratio (3.3-6.0) 11/04/19 11/04/19 11/05/19 Range/Units 23:25 23:25 02:29 WBC (4.0-11.0) K/uL RBC (4.30-5.90) M/uL Hgb (12.0-16.0) g/dL Hct (36.0-46.0) % MCV (80.0-98.0) fL MCH (27.0-32.0) pg MCHC (31.0-37.0) g/dL RDW Std Deviation (28.0-62.0) fl RDW Coeff of Ethel (11.0-15.0) % Plt Count (150-400) K/uL MPV (7.40-12.00) fL Neut % (Auto) (48.0-80.0) % Lymph % (Auto) (16.0-40.0) % Stephenson % (Auto) (0.0-15.0) % Eos % (Auto) (0.0-7.0) % Baso % (Auto) (0.0-1.5) % Neut # (Auto) (1.4-5.7) K/uL Lymph # (Auto) (0.6-2.4) K/uL Stephenson # (Auto) (0.0-0.8) K/uL Eos # (Auto) (0.0-0.7) K/uL Baso # (Auto) (0.0-0.1) K/uL Nucleated RBC % /100WBC Nucleated RBCs # K/uL INR Lactate 2.6 H* (0.20-2.00) mmol/L Sodium (136-145) mmol/L Potassium (3.5-5.1) mmol/L Chloride (98-107) mmol/L Carbon Dioxide (21.0-32.0) mmol/L BUN (7.0-18.0) mg/dL Creatinine (0.6-1.0) mg/dL Est Cr Clr Drug Dosing mL/min Estimated GFR (MDRD) ml/min Glucose (74-106) mg/dL Calcium (8.5-10.1) mg/dL Phosphorus (2.6-4.7) mg/dL Magnesium 2.0 (1.8-2.4) mg/dL Total Bilirubin (0.2-1.0) mg/dL AST (15-37) IU/L ALT (14-63) IU/L Alkaline Phosphatase (46-116) U/L Troponin I < 0.050 (0.000-0.056) ng/mL Total Protein (6.4-8.2) g/dL Albumin (3.4-5.0) g/dL Globulin (2.6-4.0) g/dL Albumin/Globulin Ratio (0.9-1.6) Triglycerides (0-200) mg/dL Cholesterol (50-200) mg/dL LDL Cholesterol, Calc (60-180) mg/dL VLDL Cholesterol (5-55) mg/dL HDL Cholesterol (40-60) mg/dL Cholesterol/HDL Ratio (3.3-6.0) 11/05/19 11/05/19 11/05/19 Range/Units 05:20 05:20 05:20 WBC 13.91 H (4.0-11.0) K/uL RBC 3.98 L (4.30-5.90) M/uL Hgb 11.4 L (12.0-16.0) g/dL Hct 34.7 L (36.0-46.0) % MCV 87.2 (80.0-98.0) fL MCH 28.6 (27.0-32.0) pg MCHC 32.9 (31.0-37.0) g/dL RDW Std Deviation 45.0 (28.0-62.0) fl RDW Coeff of Ethel 15 (11.0-15.0) % Plt Count 277 (150-400) K/uL MPV 10.90 (7.40-12.00) fL Neut % (Auto) 56.7 (48.0-80.0) % Lymph % (Auto) 31.8 (16.0-40.0) % Stephenson % (Auto) 7.5 (0.0-15.0) % Eos % (Auto) 3.7 (0.0-7.0) % Baso % (Auto) 0.3 (0.0-1.5) % Neut # (Auto) 7.9 H (1.4-5.7) K/uL Lymph # (Auto) 4.4 H (0.6-2.4) K/uL Stephenson # (Auto) 1.1 H (0.0-0.8) K/uL Eos # (Auto) 0.5 (0.0-0.7) K/uL Baso # (Auto) 0.0 (0.0-0.1) K/uL Nucleated RBC % /100WBC Nucleated RBCs # K/uL INR Lactate (0.20-2.00) mmol/L Sodium 144 (136-145) mmol/L Potassium 3.4 L (3.5-5.1) mmol/L Chloride 110 H (98-107) mmol/L Carbon Dioxide 26.7 (21.0-32.0) mmol/L BUN 8 (7.0-18.0) mg/dL Creatinine 0.7 (0.6-1.0) mg/dL Est Cr Clr Drug Dosing 88.30 mL/min Estimated GFR (MDRD) > 60.0 ml/min Glucose 104 (74-106) mg/dL Calcium 7.4 L (8.5-10.1) mg/dL Phosphorus 2.9 (2.6-4.7) mg/dL Magnesium 2.1 (1.8-2.4) mg/dL Total Bilirubin (0.2-1.0) mg/dL AST (15-37) IU/L ALT (14-63) IU/L Alkaline Phosphatase (46-116) U/L Troponin I < 0.050 (0.000-0.056) ng/mL Total Protein (6.4-8.2) g/dL Albumin (3.4-5.0) g/dL Globulin (2.6-4.0) g/dL Albumin/Globulin Ratio (0.9-1.6) Triglycerides 205 H (0-200) mg/dL Cholesterol 151 (50-200) mg/dL LDL Cholesterol, Calc 80 (60-180) mg/dL VLDL Cholesterol 41 (5-55) mg/dL HDL Cholesterol 30 L (40-60) mg/dL Cholesterol/HDL Ratio 5.0 (3.3-6.0) 11/05/19 Range/Units 05:20 WBC (4.0-11.0) K/uL RBC (4.30-5.90) M/uL Hgb (12.0-16.0) g/dL Hct (36.0-46.0) % MCV (80.0-98.0) fL MCH (27.0-32.0) pg MCHC (31.0-37.0) g/dL RDW Std Deviation (28.0-62.0) fl RDW Coeff of Ethel (11.0-15.0) % Plt Count (150-400) K/uL MPV (7.40-12.00) fL Neut % (Auto) (48.0-80.0) % Lymph % (Auto) (16.0-40.0) % Stephenson % (Auto) (0.0-15.0) % Eos % (Auto) (0.0-7.0) % Baso % (Auto) (0.0-1.5) % Neut # (Auto) (1.4-5.7) K/uL Lymph # (Auto) (0.6-2.4) K/uL Stephenson # (Auto) (0.0-0.8) K/uL Eos # (Auto) (0.0-0.7) K/uL Baso # (Auto) (0.0-0.1) K/uL Nucleated RBC % /100WBC Nucleated RBCs # K/uL INR Lactate 1.0 (0.20-2.00) mmol/L Sodium (136-145) mmol/L Potassium (3.5-5.1) mmol/L Chloride (98-107) mmol/L Carbon Dioxide (21.0-32.0) mmol/L BUN (7.0-18.0) mg/dL Creatinine (0.6-1.0) mg/dL Est Cr Clr Drug Dosing mL/min Estimated GFR (MDRD) ml/min Glucose (74-106) mg/dL Calcium (8.5-10.1) mg/dL Phosphorus (2.6-4.7) mg/dL Magnesium (1.8-2.4) mg/dL Total Bilirubin (0.2-1.0) mg/dL AST (15-37) IU/L ALT (14-63) IU/L Alkaline Phosphatase (46-116) U/L Troponin I (0.000-0.056) ng/mL Total Protein (6.4-8.2) g/dL Albumin (3.4-5.0) g/dL Globulin (2.6-4.0) g/dL Albumin/Globulin Ratio (0.9-1.6) Triglycerides (0-200) mg/dL Cholesterol (50-200) mg/dL LDL Cholesterol, Calc (60-180) mg/dL VLDL Cholesterol (5-55) mg/dL HDL Cholesterol (40-60) mg/dL Cholesterol/HDL Ratio (3.3-6.0) Result Diagrams: 11/05/19 05:20 11/05/19 05:20 Sepsis Event Note - Evaluation Sepsis Screening Result: No Definite Risk - Focused Exam Vital Signs: Vital Signs Temp Pulse Resp BP BP Pulse Ox Pulse Ox 11/05/19 04:00 96.9 F 77 17 108/66 96 11/05/19 01:30 97.0 F 89 16 127/74 94 L 11/05/19 01:13 86 16 119/78 96 11/05/19 00:45 99 11/05/19 00:35 98.1 F 86 16 111/77 98 11/05/19 00:15 86 120/79 11/05/19 00:01 96 18 109/67 98 11/04/19 23:54 99 18 109/74 109/74 98 11/04/19 23:49 99 11/04/19 23:48 97 20 115/82 99 11/04/19 23:47 115/82 11/04/19 23:40 110 H 124/83 93 L 11/04/19 23:25 97.5 F 107 H 18 113/82 97 Date Exam was Performed: 11/05/19 Time Exam was Performed: 09:28 Problem List Initiated/Reviewed/Updated: Yes Orders Last 24hrs: Active Orders 24 hr Category Date Time Status Patient Status [ADT] Stat ADT 11/05/19 00:29 Active Cardiac Monitoring [RC] . DIRECTED Care 11/04/19 23:40 Active Oxygen Therapy [RC] PRN Care 11/05/19 00:35 Active Oxygen Therapy, ED [RC] ASDIRECTED Care 11/04/19 23:40 Active Pulse Oximetry [RC] ASDIRECTED Care 11/04/19 23:40 Active RT Aerosol Therapy [RC] ASDIRECTED Care 11/05/19 00:39 Active Telemetry Monitoring [Cardiac Monitoring] [RC] Q8H Care 11/05/19 00:34 Active VTE/DVT Education [RC] PER UNIT ROUTINE Care 11/05/19 00:35 Active Heart Healthy Diet [DIET] Diet 11/05/19 Breakfast Active ALPRAZolam [Xanax] Med 11/05/19 09:00 Active 0.5 mg PO DAILY Albuterol/Ipratropium [DuoNeb 3.0-0.5 MG/3 ML] Med 11/05/19 00:37 Active 3 ml NEB Q4HRRT PRN Alum Hydrox/Mag Hydrox/Simeth [Mag-Al Plus] Med 11/05/19 00:49 Active 30 ml PO Q4H PRN Aspirin Med 11/05/19 09:00 Active 81 mg PO DAILY Clopidogrel [Plavix] Med 11/05/19 09:00 Active 75 mg PO DAILY Morphine Med 11/05/19 00:37 Active 2 mg IVPUSH Q4H PRN Nitroglycerin [Nitrostat] Med 11/05/19 00:37 Active 0.4 mg SL Q5M PRN Ondansetron [Zofran] Med 11/05/19 00:37 Active 4 mg IVPUSH Q4H PRN Sodium Chloride 0.9% [Saline Flush] Med 11/04/19 23:40 Active 10 ml FLUSH ASDIRECTED PRN Sodium Chloride 0.9% [Saline Flush] Med 11/04/19 23:40 Active 2.5 ml FLUSH ASDIRECTED PRN atorvaSTATin [Lipitor] Med 11/05/19 09:00 Active 80 mg PO DAILY Saline Lock Insert [OM.PC] Stat Oth 11/04/19 23:40 Ordered Resuscitation Status Routine Resus Stat 11/05/19 00:34 Ordered Medication Orders Al Hydroxide/Mg Hydroxide (Mag-Al Plus) 30 ml PO Q4H PRN PRN Reason: Heartburn Albuterol/Ipratropium (Duoneb 3.0-0.5 Mg/3 Ml) 3 ml NEB Q4HRRT PRN PRN Reason: Shortness Of Breath/wheezing Alprazolam (Xanax) 0.5 mg PO DAILY [facility] Aspirin (Aspirin) 81 mg PO DAILY [facility] Atorvastatin Calcium (Lipitor) 80 mg PO DAILY [facility] Clopidogrel Bisulfate (Plavix) 75 mg PO DAILY [facility] Morphine Sulfate (Morphine) 2 mg IVPUSH Q4H PRN PRN Reason: Pain (severe 7-10) Stop: 11/06/19 00:37 Last Admin: 11/05/19 01:51 Dose: 2 mg Nitroglycerin (Nitrostat) 0.4 mg SL Q5M PRN PRN Reason: Chest Pain Stop: 11/06/19 00:39 Ondansetron HCl (Zofran) 4 mg IVPUSH Q4H PRN PRN Reason: Nausea/Vomiting Sodium Chloride (Saline Flush) 10 ml FLUSH ASDIRECTED PRN PRN Reason: Keep Vein Open Sodium Chloride (Saline Flush) 2.5 ml FLUSH ASDIRECTED PRN PRN Reason: Keep Vein Open Assessment/Plan Comment:: Assessment: 1. Chest pain in a cardiac patient status post angioplasty with ACS ruled out 2. Leukocytosis: most likely reactive 3. Hypokalemia 4. Low calcium 5. Hyper-Triglyceridemia Plan Admit to observation. Full code. Activity up ad jennifer. Telemetry. DVT prophylaxis: SCDs. 1. Troponins trended: negative. Chest x-ray negative. Leukocytosis: Most likely reactive; no obvious sign of infection; vitals stable afebrile. Chest x- ray negative. UA negative. 2. Potassium and calcium: Electrolytes repleted 3. Hypertriglyceridemia: Patient is on high-dose atorvastatin; continue to monitor. <Elvis Nobles - Last Filed: 11/07/19 14:32> H&P History of Present Illness - General Admit Problem/Dx: Admission Diagnosis/Problem Admission Diagnosis/Problem Acute coronary syndrome chest pain Pain Score (Numeric/FACES): 0 Exam - Vital Signs Vital Signs: Last Vital Signs Temp 35.8 C 11/05/19 12:00 Pulse 80 11/05/19 12:00 Resp 16 11/05/19 12:00 BP 137/75 11/05/19 12:00 Pulse Ox 94 L 11/05/19 12:00 - Patient Data Result Diagrams: 11/05/19 05:20 12/19/19 05:20 Assessment/Plan Comment:: I performed a history and physical exam of the patient and discussed management with resident. I have reviewed the residents note and agree with documented findings and plan unless otherwise specified in my note.
[2019-11-05] MEDS ORDERED: Calcium Gluconate 1 GM in Sodium Chloride 0.9% 100 ML IV SCH (10:30)
[2019-11-05] MEDS ORDERED: Acetaminophen/HYDROcodone 325-5 MG Tab PO PRN (10:51)
[2019-11-05 14:23] VITALS: BP 137/75; PULSE 80
--- NOTE | 2019-11-05 18:32 | PCM.DCSUM1 ---
<Kortney Peck - Last Filed: 11/05/19 18:36> Discharge Summary - Hospital Course Free Text/Narrative:: Discharge summary Admission date: November 04, 2019 Discharge date November 05, 2019 Admission diagnoses: Chest pain/ACS rule out and patient with history of LAD stent Past medical history of tobacco abuse Discharge diagnoses: Chest pain with ACS ruled out in patient with history of LAD stent Consultations: None Procedures: None Hospital course: patient is a 41-year-old female with past medical history of angioplasty with stent placement in April 2016 presented yesterday with acute onset left-sided chest pain with radiation of pain into her left shoulder; patient endorses watching a movie while this occurred presented to the ED after trying a dose of nitroglycerin at home without resolution of pain on arrival additional dose of nitroglycerin was given with moderate improvement of her pain; ASA 324 given. initial and subsequent 2 troponins were negative; chest x-ray negative and patient was observed overnight. Initial lactate and leukoctes were marginally increased but had resolved on following AM labs; pt. had become asymptomatic after resolution of chest pain. Most most recent echo was performed 6 months ago (outside facility/pt had results on her phone) showing patent foramen ovale with right to left shunt and mild pulmonary obstructive pattern. Following morning patient endorsed feeling no pain and requesting to go home. Stressed importance of reducing tobacco abuse as this is making things worse and advised to also discontinue consumption of sugary beverages. Discharge condition: Stable Disposition: Home Discharge medications: Restarted home medications : see attached chart Discharge instructions: Advised to follow up with PCP in 7-10 days. Advised to contact Cardiology as patient already has appointment in 30-days; advised to contact to [facility] if earlier appointment is necessary Follow-up: PCP/Cardiology - Discharge Data Discharge Date: 11/05/19 Discharge Disposition: Home, Self-Care 01 Condition: Stable - Referral to Home Health Primary Care Physician: César Arnold MD - Patient Instructions Diet: Heart Healthy Diet Driving: May Drive Today Showering/Bathing: May Shower Notify Provider of: Fever, Increased Pain, Swelling and Redness, Nausea and/or Vomiting Other/Special Instructions: Patient advised to follow up with your PCP within 7- 10 days. Please contact your Bilingual Inside Sales Representative as inquire if he or she may require an earlier appointment then the one scheduled next month. Continue to take your home medications. Please reduce the amount of sugar consumption and caffeine consumption e.g: pepsi. Please discontinue cigarette smoking because there is some concern it is making your heart worse and you are in the beginning of COPD. - Discharge Plan *PRESCRIPTION DRUG MONITORING PROGRAM REVIEWED*: No *COPY OF PRESCRIPTION DRUG MONITORING REPORT IN PATIENT DAYANA: No Home Medications: Home Meds Aspirin 81 mg PO DAILY 10/01/16 [History] Clopidogrel [Plavix] 75 mg PO DAILY 10/01/16 [History] ALPRAZolam [Alprazolam] 0.5 mg PO DAILY 11/04/19 [History] Acetaminophen/HYDROcodone [[employer] 325-10 MG] 10 - 325 mg PO ASDIRECTED PRN [History] Cyclobenzaprine [Flexeril] 10 mg PO BEDTIME 11/04/19 [History] Gabapentin [Neurontin] 1,200 mg PO BEDTIME 11/04/19 [History] Mesalamine [Lialda] 1.2 gm PO DAILY 11/04/19 [History] atorvaSTATin Calcium [Atorvastatin Calcium] 80 mg PO DAILY 11/04/19 [History] Nitroglycerin [Nitrostat] 0.4 mg SL Q5M PRN tab.sl 11/05/19 [Rx] Potassium Gluconate [Potassium] 99 mg PO DAILY 11/05/19 [History] Patient Handouts: Acute Coronary Syndrome Referrals: César Arnold MD [Primary Care Provider] - (Follow-up with PCP, as planned.Patient has already an incoming appointment,next month.) - Discharge Summary/Plan Comment DC Time >30 min.: No - Patient Data Vitals - Most Recent: Last Vital Signs Temp 96.5 F 11/05/19 12:00 Pulse 80 11/05/19 12:00 Resp 16 11/05/19 12:00 BP 137/75 11/05/19 12:00 Pulse Ox 94 L 11/05/19 12:00 Weight - Most Recent: 58.6 kg I&O - Last 24 hours: Intake & Output 11/05/19 11/05/19 11/05/19 06:59 14:59 22:59 Intake Total 569 Output Total 600 Balance -31 Lab Results - Last 24 hrs: Laboratory Results - last 24 hr 11/04/19 11/04/19 11/04/19 Range/Units 23:25 23:25 23:25 WBC 18.11 H (4.0-11.0) K/uL RBC 4.65 (4.30-5.90) M/uL Hgb 13.4 (12.0-16.0) g/dL Hct 39.8 (36.0-46.0) % MCV 85.6 (80.0-98.0) fL MCH 28.8 (27.0-32.0) pg MCHC 33.7 (31.0-37.0) g/dL RDW Std Deviation 45.8 (28.0-62.0) fl RDW Coeff of Ethel 15 (11.0-15.0) % Plt Count 377 (150-400) K/uL MPV 11.20 (7.40-12.00) fL Neut % (Auto) 52.4 (48.0-80.0) % Lymph % (Auto) 35.5 (16.0-40.0) % [place] % (Auto) 8.1 (0.0-15.0) % Eos % (Auto) 3.6 (0.0-7.0) % Baso % (Auto) 0.4 (0.0-1.5) % Neut # (Auto) 9.5 H (1.4-5.7) K/uL Lymph # (Auto) 6.4 H (0.6-2.4) K/uL [place] # (Auto) 1.5 H (0.0-0.8) K/uL Eos # (Auto) 0.7 (0.0-0.7) K/uL Baso # (Auto) 0.1 (0.0-0.1) K/uL Nucleated RBC % 0.0 /100WBC Nucleated RBCs # 0 K/uL INR 0.92 Lactate (0.20-2.00) mmol/L Sodium 140 (136-145) mmol/L Potassium 2.9 L (3.5-5.1) mmol/L Chloride 102 (98-107) mmol/L Carbon Dioxide 26.7 (21.0-32.0) mmol/L BUN 10 (7.0-18.0) mg/dL Creatinine 0.9 (0.6-1.0) mg/dL Est Cr Clr Drug Dosing 65.69 mL/min Estimated GFR (MDRD) > 60.0 ml/min Glucose 86 (74-106) mg/dL Calcium 8.2 L (8.5-10.1) mg/dL Phosphorus (2.6-4.7) mg/dL Magnesium (1.8-2.4) mg/dL Total Bilirubin 0.2 (0.2-1.0) mg/dL AST 10 L (15-37) IU/L ALT 18 (14-63) IU/L Alkaline Phosphatase 96 (46-116) U/L Troponin I < 0.050 (0.000-0.056) ng/mL Total Protein 6.7 (6.4-8.2) g/dL Albumin 3.3 L (3.4-5.0) g/dL Globulin 3.4 (2.6-4.0) g/dL Albumin/Globulin Ratio 1.0 (0.9-1.6) Triglycerides (0-200) mg/dL Cholesterol (50-200) mg/dL LDL Cholesterol, Calc (60-180) mg/dL VLDL Cholesterol (5-55) mg/dL HDL Cholesterol (40-60) mg/dL Cholesterol/HDL Ratio (3.3-6.0) 11/04/19 11/04/19 11/05/19 Range/Units 23:25 23:25 02:29 WBC (4.0-11.0) K/uL RBC (4.30-5.90) M/uL Hgb (12.0-16.0) g/dL Hct (36.0-46.0) % MCV (80.0-98.0) fL MCH (27.0-32.0) pg MCHC (31.0-37.0) g/dL RDW Std Deviation (28.0-62.0) fl RDW Coeff of Ethel (11.0-15.0) % Plt Count (150-400) K/uL MPV (7.40-12.00) fL Neut % (Auto) (48.0-80.0) % Lymph % (Auto) (16.0-40.0) % [place] % (Auto) (0.0-15.0) % Eos % (Auto) (0.0-7.0) % Baso % (Auto) (0.0-1.5) % Neut # (Auto) (1.4-5.7) K/uL Lymph # (Auto) (0.6-2.4) K/uL [place] # (Auto) (0.0-0.8) K/uL Eos # (Auto) (0.0-0.7) K/uL Baso # (Auto) (0.0-0.1) K/uL Nucleated RBC % /100WBC Nucleated RBCs # K/uL INR Lactate 2.6 H* (0.20-2.00) mmol/L Sodium (136-145) mmol/L Potassium (3.5-5.1) mmol/L Chloride (98-107) mmol/L Carbon Dioxide (21.0-32.0) mmol/L BUN (7.0-18.0) mg/dL Creatinine (0.6-1.0) mg/dL Est Cr Clr Drug Dosing mL/min Estimated GFR (MDRD) ml/min Glucose (74-106) mg/dL Calcium (8.5-10.1) mg/dL Phosphorus (2.6-4.7) mg/dL Magnesium 2.0 (1.8-2.4) mg/dL Total Bilirubin (0.2-1.0) mg/dL AST (15-37) IU/L ALT (14-63) IU/L Alkaline Phosphatase (46-116) U/L Troponin I < 0.050 (0.000-0.056) ng/mL Total Protein (6.4-8.2) g/dL Albumin (3.4-5.0) g/dL Globulin (2.6-4.0) g/dL Albumin/Globulin Ratio (0.9-1.6) Triglycerides (0-200) mg/dL Cholesterol (50-200) mg/dL LDL Cholesterol, Calc (60-180) mg/dL VLDL Cholesterol (5-55) mg/dL HDL Cholesterol (40-60) mg/dL Cholesterol/HDL Ratio (3.3-6.0) 11/05/19 11/05/19 11/05/19 Range/Units 05:20 05:20 05:20 WBC 13.91 H (4.0-11.0) K/uL RBC 3.98 L (4.30-5.90) M/uL Hgb 11.4 L (12.0-16.0) g/dL Hct 34.7 L (36.0-46.0) % MCV 87.2 (80.0-98.0) fL MCH 28.6 (27.0-32.0) pg MCHC 32.9 (31.0-37.0) g/dL RDW Std Deviation 45.0 (28.0-62.0) fl RDW Coeff of Ethel 15 (11.0-15.0) % Plt Count 277 (150-400) K/uL MPV 10.90 (7.40-12.00) fL Neut % (Auto) 56.7 (48.0-80.0) % Lymph % (Auto) 31.8 (16.0-40.0) % [place] % (Auto) 7.5 (0.0-15.0) % Eos % (Auto) 3.7 (0.0-7.0) % Baso % (Auto) 0.3 (0.0-1.5) % Neut # (Auto) 7.9 H (1.4-5.7) K/uL Lymph # (Auto) 4.4 H (0.6-2.4) K/uL [place] # (Auto) 1.1 H (0.0-0.8) K/uL Eos # (Auto) 0.5 (0.0-0.7) K/uL Baso # (Auto) 0.0 (0.0-0.1) K/uL Nucleated RBC % /100WBC Nucleated RBCs # K/uL INR Lactate (0.20-2.00) mmol/L Sodium 144 (136-145) mmol/L Potassium 3.4 L (3.5-5.1) mmol/L Chloride 110 H (98-107) mmol/L Carbon Dioxide 26.7 (21.0-32.0) mmol/L BUN 8 (7.0-18.0) mg/dL Creatinine 0.7 (0.6-1.0) mg/dL Est Cr Clr Drug Dosing 88.30 mL/min Estimated GFR (MDRD) > 60.0 ml/min Glucose 104 (74-106) mg/dL Calcium 7.4 L (8.5-10.1) mg/dL Phosphorus 2.9 (2.6-4.7) mg/dL Magnesium 2.1 (1.8-2.4) mg/dL Total Bilirubin (0.2-1.0) mg/dL AST (15-37) IU/L ALT (14-63) IU/L Alkaline Phosphatase (46-116) U/L Troponin I < 0.050 (0.000-0.056) ng/mL Total Protein (6.4-8.2) g/dL Albumin (3.4-5.0) g/dL Globulin (2.6-4.0) g/dL Albumin/Globulin Ratio (0.9-1.6) Triglycerides 205 H (0-200) mg/dL Cholesterol 151 (50-200) mg/dL LDL Cholesterol, Calc 80 (60-180) mg/dL VLDL Cholesterol 41 (5-55) mg/dL HDL Cholesterol 30 L (40-60) mg/dL Cholesterol/HDL Ratio 5.0 (3.3-6.0) 11/05/19 Range/Units 05:20 WBC (4.0-11.0) K/uL RBC (4.30-5.90) M/uL Hgb (12.0-16.0) g/dL Hct (36.0-46.0) % MCV (80.0-98.0) fL MCH (27.0-32.0) pg MCHC (31.0-37.0) g/dL RDW Std Deviation (28.0-62.0) fl RDW Coeff of Ethel (11.0-15.0) % Plt Count (150-400) K/uL MPV (7.40-12.00) fL Neut % (Auto) (48.0-80.0) % Lymph % (Auto) (16.0-40.0) % [place] % (Auto) (0.0-15.0) % Eos % (Auto) (0.0-7.0) % Baso % (Auto) (0.0-1.5) % Neut # (Auto) (1.4-5.7) K/uL Lymph # (Auto) (0.6-2.4) K/uL [place] # (Auto) (0.0-0.8) K/uL Eos # (Auto) (0.0-0.7) K/uL Baso # (Auto) (0.0-0.1) K/uL Nucleated RBC % /100WBC Nucleated RBCs # K/uL INR Lactate 1.0 (0.20-2.00) mmol/L Sodium (136-145) mmol/L Potassium (3.5-5.1) mmol/L Chloride (98-107) mmol/L Carbon Dioxide (21.0-32.0) mmol/L BUN (7.0-18.0) mg/dL Creatinine (0.6-1.0) mg/dL Est Cr Clr Drug Dosing mL/min Estimated GFR (MDRD) ml/min Glucose (74-106) mg/dL Calcium (8.5-10.1) mg/dL Phosphorus (2.6-4.7) mg/dL Magnesium (1.8-2.4) mg/dL Total Bilirubin (0.2-1.0) mg/dL AST (15-37) IU/L ALT (14-63) IU/L Alkaline Phosphatase (46-116) U/L Troponin I (0.000-0.056) ng/mL Total Protein (6.4-8.2) g/dL Albumin (3.4-5.0) g/dL Globulin (2.6-4.0) g/dL Albumin/Globulin Ratio (0.9-1.6) Triglycerides (0-200) mg/dL Cholesterol (50-200) mg/dL LDL Cholesterol, Calc (60-180) mg/dL VLDL Cholesterol (5-55) mg/dL HDL Cholesterol (40-60) mg/dL Cholesterol/HDL Ratio (3.3-6.0) Med Orders - Current: Current Medications Discontinued Medications Hydrocodone Bitart/Acetaminophen ([employer] 325-5 Mg) 1 tab PO Q4H PRN PRN Reason: Pain Al Hydroxide/Mg Hydroxide (Mag-Al Plus) 30 ml PO Q4H PRN PRN Reason: Heartburn Albuterol/Ipratropium (Duoneb 3.0-0.5 Mg/3 Ml) 3 ml NEB Q4HRRT PRN PRN Reason: Shortness Of Breath/wheezing Alprazolam (Xanax) 0.5 mg PO DAILY [facility] Last Admin: 11/05/19 10:11 Dose: Not Given Aspirin (Aspirin) 81 mg PO DAILY [facility] Aspirin (Aspirin) 81 mg PO BEDTIME [facility] Atorvastatin Calcium (Lipitor) 80 mg PO DAILY [facility] Atorvastatin Calcium (Lipitor) 80 mg PO BEDTIME [facility] Clopidogrel Bisulfate (Plavix) 75 mg PO DAILY [facility] Clopidogrel Bisulfate (Plavix) 75 mg PO BEDTIME [facility] Sodium Chloride (Normal Saline) 1,000 mls @ 999 mls/hr IV STAT ONE Stop: 11/05/19 00:40 Last Admin: 11/04/19 23:47 Dose: 999 mls/hr Sodium Chloride (Normal Saline) 1,000 mls @ 125 mls/hr IV ASDIRECTED [facility] Stop: 11/05/19 05:00 Last Admin: 11/05/19 01:51 Dose: 125 mls/hr Calcium Gluconate 1 gm/ Sodium (Chloride) 110 mls @ 110 mls/hr IV 11/05/19@ 1030 [facility] Stop: 11/05/19 11:29 Last Admin: 11/05/19 10:37 Dose: 110 mls/hr Morphine Sulfate (Morphine) 2 mg IVPUSH Q4H PRN PRN Reason: Pain (severe 7-10) Stop: 11/06/19 00:37 Last Admin: 11/05/19 01:51 Dose: 2 mg Nitroglycerin (Nitrostat) 0.4 mg SL Q5M PRN PRN Reason: Chest Pain Last Admin: 11/04/19 23:54 Dose: 0.4 mg Nitroglycerin (Nitro-Bid 2%) 0.5 gm TOP ONETIME ONE Stop: 11/05/19 00:04 Last Admin: 11/05/19 00:15 Dose: 0.5 gm Nitroglycerin (Nitrostat) 0.4 mg SL Q5M PRN PRN Reason: Chest Pain Stop: 11/06/19 00:39 Ondansetron HCl (Zofran) 4 mg IVPUSH Q4H PRN PRN Reason: Nausea/Vomiting Potassium Chloride (Klor-Con M20) 40 meq PO ONETIME ONE Stop: 11/05/19 00:14 Last Admin: 11/05/19 00:36 Dose: 40 meq Potassium Chloride (Klor-Con M20) 20 meq PO ONETIME ONE Stop: 11/05/19 07:41 Last Admin: 11/05/19 08:29 Dose: 20 meq Sodium Chloride (Saline Flush) 10 ml FLUSH ASDIRECTED PRN PRN Reason: Keep Vein Open Sodium Chloride (Saline Flush) 2.5 ml FLUSH ASDIRECTED PRN PRN Reason: Keep Vein Open <Elvis Nobles - Last Filed: 11/07/19 14:32> Discharge Summary - Hospital Course HPI Initial Comments: I have seen and evaluated the patient and agree with the residents note unless specified in my note - Referral to Home Health Primary Care Physician: César Arnold MD - Patient Data Vitals - Most Recent: Last Vital Signs Temp 35.8 C 11/05/19 12:00 Pulse 80 11/05/19 12:00 Resp 16 11/05/19 12:00 BP 137/75 11/05/19 12:00 Pulse Ox 94 L 11/05/19 12:00 Med Orders - Current: Current Medications Discontinued Medications Hydrocodone Bitart/Acetaminophen ([employer] 325-5 Mg) 1 tab PO Q4H PRN PRN Reason: Pain Al Hydroxide/Mg Hydroxide (Mag-Al Plus) 30 ml PO Q4H PRN PRN Reason: Heartburn Albuterol/Ipratropium (Duoneb 3.0-0.5 Mg/3 Ml) 3 ml NEB Q4HRRT PRN PRN Reason: Shortness Of Breath/wheezing Alprazolam (Xanax) 0.5 mg PO DAILY [facility] Last Admin: 11/05/19 10:11 Dose: Not Given Aspirin (Aspirin) 81 mg PO DAILY [facility] Aspirin (Aspirin) 81 mg PO BEDTIME [facility] Atorvastatin Calcium (Lipitor) 80 mg PO DAILY [facility] Atorvastatin Calcium (Lipitor) 80 mg PO BEDTIME [facility] Clopidogrel Bisulfate (Plavix) 75 mg PO DAILY [facility] Clopidogrel Bisulfate (Plavix) 75 mg PO BEDTIME [facility] Sodium Chloride (Normal Saline) 1,000 mls @ 999 mls/hr IV STAT ONE Stop: 11/05/19 00:40 Last Admin: 11/04/19 23:47 Dose: 999 mls/hr Sodium Chloride (Normal Saline) 1,000 mls @ 125 mls/hr IV ASDIRECTED [facility] Stop: 11/05/19 05:00 Last Admin: 11/05/19 01:51 Dose: 125 mls/hr Calcium Gluconate 1 gm/ Sodium (Chloride) 110 mls @ 110 mls/hr IV 11/05/19@ 1030 [facility] Stop: 11/05/19 11:29 Last Admin: 11/05/19 10:37 Dose: 110 mls/hr Morphine Sulfate (Morphine) 2 mg IVPUSH Q4H PRN PRN Reason: Pain (severe 7-10) Stop: 11/06/19 00:37 Last Admin: 11/05/19 01:51 Dose: 2 mg Nitroglycerin (Nitrostat) 0.4 mg SL Q5M PRN PRN Reason: Chest Pain Last Admin: 11/04/19 23:54 Dose: 0.4 mg Nitroglycerin (Nitro-Bid 2%) 0.5 gm TOP ONETIME ONE Stop: 11/05/19 00:04 Last Admin: 11/05/19 00:15 Dose: 0.5 gm Nitroglycerin (Nitrostat) 0.4 mg SL Q5M PRN PRN Reason: Chest Pain Stop: 11/06/19 00:39 Ondansetron HCl (Zofran) 4 mg IVPUSH Q4H PRN PRN Reason: Nausea/Vomiting Potassium Chloride (Klor-Con M20) 40 meq PO ONETIME ONE Stop: 11/05/19 00:14 Last Admin: 11/05/19 00:36 Dose: 40 meq Potassium Chloride (Klor-Con M20) 20 meq PO ONETIME ONE Stop: 11/05/19 07:41 Last Admin: 11/05/19 08:29 Dose: 20 meq Sodium Chloride (Saline Flush) 10 ml FLUSH ASDIRECTED PRN PRN Reason: Keep Vein Open Sodium Chloride (Saline Flush) 2.5 ml FLUSH ASDIRECTED PRN PRN Reason: Keep Vein Open
== END 2019-11-05 14:35 | disposition home or self-care (01) ==
LOC: MW.ED 23:25 → MW.MS 11-05 00:29
PROVIDERS: ADMIT Student in an Organized Health Care Education/Training Program; ATTEND Student in an Organized Health Care Education/Training Program
DX: R07.9 Chest pain, unspecified (principal); E87.6 Hypokalemia; E83.51 Hypocalcemia; E78.1 Pure hyperglyceridemia; I25.10 Atherosclerotic heart disease of native coronary artery without angina pectoris; I25.2 Old myocardial infarction; D72.829 Elevated white blood cell count, unspecified; F17.200 Nicotine dependence, unspecified, uncomplicated; Z88.5 Allergy status to narcotic agent; Z88.6 Allergy status to analgesic agent; Z88.4 Allergy status to anesthetic agent; Z95.5 Presence of coronary angioplasty implant and graft; Z79.82 Long term (current) use of aspirin; Z79.02 Long term (current) use of antithrombotics/antiplatelets; Z79.899 Other long term (current) drug therapy
CPT/HCPCS: 36415; 71045; 71045-26; 80048; 80053; 80061; 83605; 83735; 84100; 84484; 85025; 85610; 93005; 96360; 99285-25; A9270-GY; J0610; J2270; J7030; J7050